=== PATIENT | male | born 1940 | race Caucasian/White ===

== ENCOUNTER 2023-11-21 23:25 | Inpatient (IN) | payer OTHER, MEDICARE ==
[~2023-11-21] VITALS: Ht 170.2 cm; Wt 55.3 kg
[2023-11-21 23:34] VITALS: BP_SYST 170; PULSE 90; RESP 16; TEMP 97.2; O2SAT 95
[2023-11-21 23:53] LABS: HEMOGLOBIN 14.6 g/dL (14.0-18.0); MEAN CORPUSCULAR HEMOGLOBIN 35 pg (27-31); WHITE BLOOD COUNT (AUTO) 2.8 K/uL (4.8-10.8)
[2023-11-22] MEDS: NACL 0.9% 1,000 ML IV ONE
[2023-11-22 00:02] LABS: BASOPHILS % (AUTO) 0.3 % (0.0-2.0); HEMATOCRIT 43.2 % (36-54); LYMPHOCYTES # (AUTO) 0.3 K/uL (1.0-5.5); LYMPHOCYTES % (AUTO) 10.7 % (20.5-51.5); MEAN CORPUSCULAR HGB CONC 34 % (32-36); MEAN CORPUSCULAR VOLUME 103 fL (79.0-98.0); MONOCYTES # (AUTO) 0.1 K/uL (0.0-1.0); MONOCYTES % (AUTO) 1.9 % (1.7-9.3); NEUTROPHILS # (AUTO) 2.5 K/uL (1.8-7.7); NEUTROPHILS % (AUTO) 87.1 % (40.0-70.0); PLATELET COUNT (AUTO) 137 K/uL (130-430); RED CELL DISTRIBUTION WIDTH 14.9 % (9.0-15.0)
[2023-11-22 00:07] LABS: ALANINE AMINOTRANSFERASE 29 U/L (12-78); ALBUMIN 3.8 g/dL (3.4-4.8); ANION GAP 5 (5-15); ASPARTATE AMINOTRANSFERASE 33 U/L (10-37); BILIRUBIN,DIRECT 0.4 mg/dL (0.0-0.3); CALCIUM 9.6 mg/dL (8.4-11.0); CARBON DIOXIDE 38 mmol/L (23-29); CHLORIDE 97 mmol/L (98-107); GLUCOSE 146 mg/dL (74-106); POTASSIUM 4.2 mmol/L (3.5-5.1); SODIUM SERUM 140 mmol/L (136-145); TOTAL BILIRUBIN 1.2 mg/dL (0.0-1.0); TOTAL PROTEIN, SERUM 7.8 g/dL (6.4-8.3); UREA NITROGEN, BLOOD 32 mg/dL (8-21)
[2023-11-22] MEDS ORDERED: MECO10005 PO (00:21)
[2023-11-22] MEDS ORDERED: VITD2000 PO (00:21)
[2023-11-22] MEDS ORDERED: FAMO40TA7 PO (00:21)
[2023-11-22] MEDS ORDERED: DONE10TA44 PO (00:21)
[2023-11-22] MEDS ORDERED: MV-M1CAP15 PO (00:21)
[2023-11-22] MEDS ORDERED: HYDR12.55 PO (00:21)
[2023-11-22] MEDS ORDERED: SER25 PO (00:21)
[2023-11-22] MEDS ORDERED: METO50TA7 PO (00:21)
[2023-11-22 01:17] LABS: BILIRUBIN,URINE 1+ (NEGATIVE); BLOOD, URINE NEGATIVE (NEGATIVE); CLARITY/URINE CLEAR (CLEAR); COLOR,URINE YELLOW (YELLOW); GLUCOSE,URINE NEGATIVE (NEGATIVE); KETONES,URINE TRACE (NEGATIVE); LEUKOCYTE ESTERASE ,URINE NEGATIVE (NEGATIVE); NITRITE, URINE NEGATIVE (NEGATIVE); PROTEIN URINE TRACE (NEGATIVE); UROBILINOGEN,URINE 0.2 (0.2-1.0)
[2023-11-22 01:28] LABS: RBC,URINE 0-3 /HPF (0-3); WBC,URINE 0-3 /HPF (0-3)
[2023-11-22 01:29] LABS: BACTERIA,URINE None Seen /HPF (None Seen)
[2023-11-22] MEDS ORDERED: NOREPINEPHRINE BITARTRATE 4 MG in NS 246 ML IV SCH (03:30)
[2023-11-22] MEDS: D5/0.45 NS 1,000 ML IV SCH (07:29)
[2023-11-22] MEDS ORDERED: LORazepam 2 MG/ML VIAL ONE (09:26)
[2023-11-22] MEDS: LORazepam 2 MG/ML VIAL IM ONE (09:31)
[2023-11-22] MEDS ORDERED: ONDANSETRON HCL 4 MG/2 ML VIAL IVP PRN (10:45)
[2023-11-22 11:26] LABS: BASOPHILS % (AUTO) 0.5 % (0.0-2.0); EOSINOPHILS % (AUTO) 0.4 % (0.0-4.0); HEMATOCRIT 37.7 % (36-54); HEMOGLOBIN 12.4 g/dL (14.0-18.0); LYMPHOCYTES # (AUTO) 0.5 K/uL (1.0-5.5); LYMPHOCYTES % (AUTO) 23.2 % (20.5-51.5); MEAN CORPUSCULAR HEMOGLOBIN 34 pg (27-31); MEAN CORPUSCULAR HGB CONC 33 % (32-36); MEAN CORPUSCULAR VOLUME 103 fL (79.0-98.0); MONOCYTES # (AUTO) 0.1 K/uL (0.0-1.0); MONOCYTES % (AUTO) 3.4 % (1.7-9.3); NEUTROPHILS # (AUTO) 1.6 K/uL (1.8-7.7); NEUTROPHILS % (AUTO) 72.5 % (40.0-70.0); PLATELET COUNT (AUTO) 128 K/uL (130-430); RED BLOOD CELL COUNT(AUTO) 3.68 MIL/uL (4.2-6.2); RED CELL DISTRIBUTION WIDTH 14.7 % (9.0-15.0); WHITE BLOOD COUNT (AUTO) 2.2 K/uL (4.8-10.8)
[2023-11-22 11:27] LABS: ALANINE AMINOTRANSFERASE 18 U/L (12-78); ALBUMIN 2.8 g/dL (3.4-4.8); ANION GAP 2 (5-15); ASPARTATE AMINOTRANSFERASE 24 U/L (10-37); CALCIUM 8.6 mg/dL (8.4-11.0); CARBON DIOXIDE 39 mmol/L (23-29); CHLORIDE 105 mmol/L (98-107); CREATININE 0.83 mg/dL (0.55-1.30); GLUCOSE 109 mg/dL (74-106); SODIUM SERUM 146 mmol/L (136-145); TOTAL BILIRUBIN 0.8 mg/dL (0.0-1.0); TOTAL PROTEIN, SERUM 6.1 g/dL (6.4-8.3); UREA NITROGEN, BLOOD 27 mg/dL (8-21)
[2023-11-22 11:32] VITALS: BP_SYST 147; PULSE 75; RESP 16; TEMP 97.8
[2023-11-22 12:30] VITALS: BP_SYST 132; PULSE 83; RESP 15; TEMP 97.6; O2SAT 99
[2023-11-22 12:43] VITALS: O2SAT 97
[2023-11-22] MEDS: LORazepam 2 MG/ML VIAL IVP PRN (15:23)
[2023-11-22 16:51] VITALS: BP_SYST 130; PULSE 79; RESP 16; TEMP 98; O2SAT 92
[2023-11-22 20:00] VITALS: BP_SYST 134; PULSE 78; RESP 18; TEMP 97.5
[2023-11-23] VITALS (7 sets, daily range): BP systolic 122–147; PULSE 73–110; RESP 16–20; TEMP 96.7–97.6; O2SAT 94–96
[2023-11-23 06:49] LABS: ANION GAP 4 (5-15); CALCIUM 8.7 mg/dL (8.4-11.0); CARBON DIOXIDE 38 mmol/L (23-29); CHLORIDE 101 mmol/L (98-107); CREATININE 0.65 mg/dL (0.55-1.30); GLUCOSE 123 mg/dL (74-106); POTASSIUM 3.3 mmol/L (3.5-5.1); SODIUM SERUM 143 mmol/L (136-145); UREA NITROGEN, BLOOD 17 mg/dL (8-21)
[2023-11-23 07:25] LABS: BASOPHILS % (AUTO) 0.8 % (0.0-2.0); EOSINOPHILS % (AUTO) 0.5 % (0.0-4.0); HEMATOCRIT 41.7 % (36-54); HEMOGLOBIN 13.6 g/dL (14.0-18.0); LYMPHOCYTES # (AUTO) 0.3 K/uL (1.0-5.5); LYMPHOCYTES % (AUTO) 18.7 % (20.5-51.5); MEAN CORPUSCULAR HEMOGLOBIN 34 pg (27-31); MEAN CORPUSCULAR HGB CONC 33 % (32-36); MEAN CORPUSCULAR VOLUME 104 fL (79.0-98.0); MONOCYTES % (AUTO) 2.5 % (1.7-9.3); NEUTROPHILS # (AUTO) 1.4 K/uL (1.8-7.7); NEUTROPHILS % (AUTO) 77.5 % (40.0-70.0); PLATELET COUNT (AUTO) 137 K/uL (130-430); RED BLOOD CELL COUNT(AUTO) 4.02 MIL/uL (4.2-6.2); RED CELL DISTRIBUTION WIDTH 14.7 % (9.0-15.0)
[2023-11-23 08:12] LABS: WHITE BLOOD COUNT (AUTO) 1.9 K/uL (4.8-10.8)
[2023-11-23] MEDS ORDERED: [UNRECOGNIZED DRUG - OTHER] PO SCH (12:30)
[2023-11-23] MEDS ORDERED: MECOBALAMIN 1000 MCG PO SCH (12:30)
[2023-11-23] MEDS: HYDROCHLOROTHIAZIDE 25 MG TABLET (HCTZ) PO ONE (13:20)
[2023-11-23] MEDS: CHOLECALCIFEROL (VITAMIN D3) 2,000 UNIT TABLET PO ONE (13:20)
[2023-11-23] MEDS: FAMOTIDINE 20 MG TABLET PO ONE (13:21)
[2023-11-23] MEDS: METOPROLOL SUCCINATE 50 MG TAB.SR.24H (TOPROL XL) PO ONE (13:21)
[2023-11-23] MEDS: NORMAL SALINE 5 ML DISP.SYRIN IVF SCH (14:38)
[2023-11-23] MEDS: DONEPEZIL HCL 5 MG TABLET (ARICEPT) PO SCH (22:01)
[2023-11-23] MEDS: QUEtiapine FUMARATE 25 MG TABLET PO SCH (22:01)
[2023-11-24 00:45] VITALS: BP_SYST 124; PULSE 78; RESP 19; TEMP 98.5; O2SAT 97
[2023-11-24 06:31] LABS: BASOPHILS % (AUTO) 0.2 % (0.0-2.0); HEMATOCRIT 38.3 % (36-54); HEMOGLOBIN 12.7 g/dL (14.0-18.0); LYMPHOCYTES # (AUTO) 0.4 K/uL (1.0-5.5); LYMPHOCYTES % (AUTO) 19.9 % (20.5-51.5); MEAN CORPUSCULAR HEMOGLOBIN 34 pg (27-31); MEAN CORPUSCULAR HGB CONC 33 % (32-36); MEAN CORPUSCULAR VOLUME 102 fL (79.0-98.0); NEUTROPHILS # (AUTO) 1.6 K/uL (1.8-7.7); NEUTROPHILS % (AUTO) 76.9 % (40.0-70.0); PLATELET COUNT (AUTO) 121 K/uL (130-430); RED BLOOD CELL COUNT(AUTO) 3.76 MIL/uL (4.2-6.2); WHITE BLOOD COUNT (AUTO) 2.1 K/uL (4.8-10.8)
[2023-11-24 06:48] LABS: ANION GAP 2 (5-15); CALCIUM 8.7 mg/dL (8.4-11.0); CARBON DIOXIDE 39 mmol/L (23-29); CHLORIDE 102 mmol/L (98-107); CREATININE 0.69 mg/dL (0.55-1.30); GLUCOSE 101 mg/dL (74-106); POTASSIUM 3.1 mmol/L (3.5-5.1); SODIUM SERUM 143 mmol/L (136-145); UREA NITROGEN, BLOOD 18 mg/dL (8-21)
[2023-11-24 08:00] VITALS: BP_SYST 146; PULSE 84; RESP 16; TEMP 98.2; O2SAT 98
[2023-11-24 08:10] VITALS: O2SAT 96
[2023-11-24] MEDS ORDERED: CYANOCOBALAMIN (VITAMIN B-12) 1,000 MCG TABLET PO SCH (09:00)
[2023-11-24 11:05] VITALS: BP_SYST 122; PULSE 85; RESP 16; TEMP 97.7; O2SAT 96
[2023-11-24] MEDS: FAMOTIDINE 20 MG TABLET PO SCH (11:14)
[2023-11-24] MEDS: CHOLECALCIFEROL (VITAMIN D3) 2,000 UNIT TABLET PO SCH (11:15)
[2023-11-24] MEDS: METOPROLOL SUCCINATE 50 MG TAB.SR.24H (TOPROL XL) PO SCH (11:18)
[2023-11-24] MEDS: HYDROCHLOROTHIAZIDE 25 MG TABLET (HCTZ) PO SCH (11:18)
[2023-11-24] MEDS: MULTIVITS,CA,MINERALS/IRON/FA 1 TABLET PO SCH (11:19)
[2023-11-24] MEDS: D5/0.45 NS 1,000 ML IV ONE (13:49)
[2023-11-24 15:03] VITALS: BP_SYST 120; PULSE 63; RESP 16; TEMP 97.7; O2SAT 96
[2023-11-24 15:25] LABS: ABG O2 SAT% ESTIMATE 91.8 % (94.0-98.0); BLOOD GAS BASE EXCESS 10.5 mmol/L (-2.0-3.0); BLOOD GAS PCO2 57.3 mmHg (35.0-48.0); BLOOD GAS PH 7.428 (7.350-7.450); BLOOD GAS PO2 61.9 mmHg (83.0-108.0)
[2023-11-24 15:34] LABS: ALLEN'S TEST POSITIVE (P)
[2023-11-24 20:00] VITALS: BP_SYST 141; PULSE 70; RESP 16; TEMP 97; O2SAT 98
[2023-11-25 00:06] VITALS: BP_SYST 131; PULSE 68; RESP 19; TEMP 97.8; O2SAT 96
[2023-11-25 08:20] VITALS: BP_SYST 151; PULSE 72; RESP 18; TEMP 96.8; O2SAT 100; O2SAT 97
[2023-11-25] MEDS: KCL 20 mEq in 100 mL (PREMIX) 100 ML IV ONE ×2 (09:30→11:45)
[2023-11-25] MEDS: D5/0.45 NS 1,000 ML IV SCH (09:45)
[2023-11-25 11:30] VITALS: BP_SYST 149; PULSE 82; RESP 16; TEMP 97.7; O2SAT 95
[2023-11-25 15:04] VITALS: BP_SYST 141; PULSE 81; RESP 16; TEMP 97.1; O2SAT 96
[2023-11-25 15:43] LABS: EOSINOPHILS % (AUTO) 1.3 % (0.0-4.0); HEMATOCRIT 42.2 % (36-54); HEMOGLOBIN 14.5 g/dL (14.0-18.0); LYMPHOCYTES # (AUTO) 0.5 K/uL (1.0-5.5); LYMPHOCYTES % (AUTO) 21.6 % (20.5-51.5); MEAN CORPUSCULAR HEMOGLOBIN 34 pg (27-31); MEAN CORPUSCULAR HGB CONC 34 % (32-36); MEAN CORPUSCULAR VOLUME 100 fL (79.0-98.0); MONOCYTES % (AUTO) 1.8 % (1.7-9.3); NEUTROPHILS # (AUTO) 1.7 K/uL (1.8-7.7); NEUTROPHILS % (AUTO) 74.3 % (40.0-70.0); PLATELET COUNT (AUTO) 169 K/uL (130-430); RED BLOOD CELL COUNT(AUTO) 4.24 MIL/uL (4.2-6.2); RED CELL DISTRIBUTION WIDTH 14.5 % (9.0-15.0); RETICULOCYTE COUNT 0.9 % (0.5-1.5)
[2023-11-25 16:04] LABS: WHITE BLOOD COUNT (AUTO) 2.3 K/uL (4.8-10.8)
[2023-11-25 16:12] LABS: TOTAL IRON BIND. CAPACITY 185 ug/dL (250-450)
[2023-11-25 16:22] LABS: ALANINE AMINOTRANSFERASE 19 U/L (12-78); ALBUMIN 2.5 g/dL (3.4-4.8); ANION GAP 5 (5-15); ASPARTATE AMINOTRANSFERASE 25 U/L (10-37); CALCIUM 8.9 mg/dL (8.4-11.0); CARBON DIOXIDE 35 mmol/L (23-29); CHLORIDE 100 mmol/L (98-107); CREATININE 0.67 mg/dL (0.55-1.30); GLUCOSE 128 mg/dL (74-106); POTASSIUM 3.8 mmol/L (3.5-5.1); SODIUM SERUM 140 mmol/L (136-145); THYROID STIMULATING HORMONE 1.03 uIu/mL (0.34-4.82); TOTAL BILIRUBIN 0.9 mg/dL (0.0-1.0); TOTAL PROTEIN, SERUM 6.4 g/dL (6.4-8.3); UREA NITROGEN, BLOOD 15 mg/dL (8-21)
[2023-11-25 20:04] VITALS: BP_SYST 160; PULSE 68; RESP 20; TEMP 98.6; O2SAT 94
[2023-11-26 00:33] VITALS: BP_SYST 166; PULSE 70; RESP 17; TEMP 97.6; O2SAT 96
[2023-11-26 06:11] LABS: BASOPHILS % (AUTO) 0.4 % (0.0-2.0); EOSINOPHILS # (AUTO) 0.1 K/uL (0.0-0.4); EOSINOPHILS % (AUTO) 2.8 % (0.0-4.0); HEMATOCRIT 40.3 % (36-54); HEMOGLOBIN 13.7 g/dL (14.0-18.0); LYMPHOCYTES # (AUTO) 0.5 K/uL (1.0-5.5); MEAN CORPUSCULAR HEMOGLOBIN 34 pg (27-31); MEAN CORPUSCULAR HGB CONC 34 % (32-36); MEAN CORPUSCULAR VOLUME 100 fL (79.0-98.0); MONOCYTES # (AUTO) 0.1 K/uL (0.0-1.0); MONOCYTES % (AUTO) 3.4 % (1.7-9.3); NEUTROPHILS # (AUTO) 1.6 K/uL (1.8-7.7); NEUTROPHILS % (AUTO) 69.4 % (40.0-70.0); PLATELET COUNT (AUTO) 141 K/uL (130-430); RED BLOOD CELL COUNT(AUTO) 4.03 MIL/uL (4.2-6.2); RED CELL DISTRIBUTION WIDTH 14.5 % (9.0-15.0); WHITE BLOOD COUNT (AUTO) 2.3 K/uL (4.8-10.8)
[2023-11-26 06:32] LABS: ANION GAP 4 (5-15); CALCIUM 8.8 mg/dL (8.4-11.0); CARBON DIOXIDE 37 mmol/L (23-29); CHLORIDE 99 mmol/L (98-107); CREATININE 0.66 mg/dL (0.55-1.30); GLUCOSE 112 mg/dL (74-106); POTASSIUM 3.7 mmol/L (3.5-5.1); SODIUM SERUM 140 mmol/L (136-145); UREA NITROGEN, BLOOD 14 mg/dL (8-21)
[2023-11-26 08:00] VITALS: BP_SYST 126; PULSE 71; RESP 18; TEMP 97.9; O2SAT 96
[2023-11-26 08:05] VITALS: O2SAT 96
[2023-11-26] MEDS: Mecobalamin (B12 Active) 1,000 MCG PO SCH (09:00)
[2023-11-26 11:50] VITALS: BP_SYST 164; PULSE 76; RESP 16; TEMP 98.9; O2SAT 94
[2023-11-26] MEDS: NORMAL SALINE 5 ML DISP.SYRIN IVF SCH (13:24)
[2023-11-26 16:05] VITALS: BP_SYST 156; PULSE 75; RESP 16; TEMP 99; O2SAT 96
[2023-11-26 20:04] VITALS: BP_SYST 150; PULSE 64; RESP 20; TEMP 99.1; O2SAT 93; O2SAT 94
[2023-11-27 01:52] VITALS: BP_SYST 153; PULSE 68; RESP 18; TEMP 97.4; O2SAT 95
[2023-11-27 07:01] VITALS: O2SAT 98
[2023-11-27 07:10] LABS: BASOPHILS % (AUTO) 0.6 % (0.0-2.0); EOSINOPHILS # (AUTO) 0.1 K/uL (0.0-0.4); EOSINOPHILS % (AUTO) 4.2 % (0.0-4.0); HEMATOCRIT 40.4 % (36-54); HEMOGLOBIN 13.7 g/dL (14.0-18.0); LYMPHOCYTES # (AUTO) 0.7 K/uL (1.0-5.5); LYMPHOCYTES % (AUTO) 29.6 % (20.5-51.5); MEAN CORPUSCULAR HEMOGLOBIN 34 pg (27-31); MEAN CORPUSCULAR HGB CONC 34 % (32-36); MEAN CORPUSCULAR VOLUME 100 fL (79.0-98.0); MONOCYTES # (AUTO) 0.1 K/uL (0.0-1.0); MONOCYTES % (AUTO) 3.3 % (1.7-9.3); NEUTROPHILS # (AUTO) 1.5 K/uL (1.8-7.7); NEUTROPHILS % (AUTO) 62.3 % (40.0-70.0); PLATELET COUNT (AUTO) 101 K/uL (130-430); RED BLOOD CELL COUNT(AUTO) 4.03 MIL/uL (4.2-6.2); RED CELL DISTRIBUTION WIDTH 14.4 % (9.0-15.0); WHITE BLOOD COUNT (AUTO) 2.4 K/uL (4.8-10.8)
[2023-11-27 08:00] VITALS: BP_SYST 127; PULSE 60; RESP 17; TEMP 97.9; O2SAT 95
[2023-11-27 08:17] LABS: ANION GAP 7 (5-15); CALCIUM 9.1 mg/dL (8.4-11.0); CARBON DIOXIDE 34 mmol/L (23-29); CHLORIDE 99 mmol/L (98-107); CREATININE 0.67 mg/dL (0.55-1.30); GLUCOSE 108 mg/dL (74-106); POTASSIUM 4.3 mmol/L (3.5-5.1); SODIUM SERUM 140 mmol/L (136-145); UREA NITROGEN, BLOOD 16 mg/dL (8-21)
[2023-11-27 10:59] VITALS: BP_SYST 151; PULSE 74; RESP 18; TEMP 98.6; O2SAT 97
== END 2023-11-27 11:31 | disposition home or self-care (01) | DRG 91 ==
LOC: SED 23:25 → SMU 11-22 05:39
PROVIDERS: ADMIT Preventive Medicine Preventive Medicine/Occupational Environmental Medicine; ATTEND Preventive Medicine Preventive Medicine/Occupational Environmental Medicine
PROC: 4A00X4Z Measurement of Central Nervous Electrical Activity, External Approach (ICD-10-PCS; principal; 2023-11-24)
DX: G92.8 Other toxic encephalopathy (principal); J96.00 Acute respiratory failure, unspecified whether with hypoxia or hypercapnia; D61.818 Other pancytopenia; E87.6 Hypokalemia; F02.80 Dementia in other diseases classified elsewhere, unspecified severity, without behavioral disturbance, psychotic disturbance, mood disturbance, and anxiety; I10 Essential (primary) hypertension; K21.9 Gastro-esophageal reflux disease without esophagitis; N20.0 Calculus of kidney; D72.819 Decreased white blood cell count, unspecified; K80.20 Calculus of gallbladder without cholecystitis without obstruction; G30.9 Alzheimer's disease, unspecified; E55.9 Vitamin D deficiency, unspecified; R73.9 Hyperglycemia, unspecified; I48.91 Unspecified atrial fibrillation; Z78.1 Physical restraint status; Z79.899 Other long term (current) drug therapy; Z88.8 Allergy status to other drugs, medicaments and biological substances; T43.595A Adverse effect of other antipsychotics and neuroleptics, initial encounter; Y92.9 Unspecified place or not applicable
CPT/HCPCS: 36415; 36600; 70450-TC; 71045; 76700; 80048; 80053; 80076; 81000; 81001; 81015; 82272; 82803; 82948; 83540; 83550; 83605; 84443; 85025; 85044; 87040; 87081; 92610-GN; 93005; 94760; 95816; 97110-GP; 97112-GP; 97116-GP; 97530-GP; 99285; J2060; J3480; J7030